=== PATIENT | female | born 1945 | race Caucasian/White ===

== ENCOUNTER 2017-05-17 16:01 | Emergency (ER) | payer MEDICARE, BC, OTHER ==
[~2017-05-17] VITALS: Ht 162.6 cm; Wt 68.0 kg
--- NOTE | 2017-05-18 | EKG ---
[facility] [address] [facility] [place] [address] Signed Normal sinus rhythm Nonspecific T wave abnormality Abnormal ECG No previous ECGs available Confirmed by PAMELA LEAL MD ([id number] on 05/18/2017 12:00:23 AM Electronically Signed By: PAMELA LEAL MD 05/18/17 0000 PATIENT NAME: CAROLA CORONA Electrocardiogram DATE OF : 49 PHYSICIAN: PAMELA LEAL MD REPORT #: [id number] REPORT IS CONFIDENTIAL AND NOT TO BE RELEASED WITHOUT AUTHORIZATION
== END 2017-05-17 19:08 | disposition home or self-care (01) ==
LOC: ED 16:01
DX: R55 Syncope and collapse (principal); Z90.49 Acquired absence of other specified parts of digestive tract
CPT/HCPCS: 80053; 81001; 84484; 85025; 93005; 93010; 96360; 99284; J7030